=== PATIENT | male | born 1995 | race Caucasian/White ===

== ENCOUNTER → 2023-03-21 | Outpatient (CLI) | payer BC, SELFPAY ==
[2023-03-21 12:18] LABS: Absolute Lymphocyte Count 2.47 X10^3/uL (0.83-4.51); Basophil# 0.07 X10^3/uL; Basophil% 0.8 % (0-1); Eosinophil# 0.32 X10^3/uL; Eosinophils% 3.8 % (0-5); Hematocrit 45.3 % (40-54); Hemoglobin 14.8 g/dL (13.0-16.5); Lymphocyte # 2.47 X10^3/ul (0.83-4.51); Mean Corp Hgb Conc 32.7 g/dL (32-36); Mean Corpuscular Hgb 28.7 pg (27.0-32.0); Mean Platelet Vol. 10.1 fl (6.2-12.0); Monocyte# 0.55 X10^3/uL; Monocyte% 6.5 % (0-10); NRBC Flagged by Analyzer 0 % (0-5); Neutrophil # 5.03 X10^3/uL (2.7-7.7); Neutrophil % 59.1 % (47-70); Platelet Count 267 K/mm3 (150-450); RBC Distribution Width CV 12.7 % (11.6-14.6); RBC Distribution Width SD 41.1 fl (35.1-43.9); Red Blood Count 5.15 M/mm3 (4.6-6.2); White Blood Count 8.5 K/mm3 (4.4-11.0)
[2023-03-21 13:00] LABS: ALB/GLOB Ratio 1.1 RATIO (0.9-2.4); AST(SGOT) 27 U/L (15-37); Alanine Aminotransfer ALT/SGPT 65 U/L (16-61); Albumin, Serum 3.8 g/dL (3.2-5.0); Alkaline Phosphatase 78 U/L (45-117); Anion Gap 4 (5-15); BUN 14 mg/dL (7-18); BUN/Creat Ratio 16.1 RATIO (10-20); Calcium,Total 8.9 mg/dL (8.5-10.1); Chloride 107 mmol/L (98-107); Cholesterol 186 mg/dL (200); Creatinine, Serum 0.87 mg/dL (0.70-1.30); EST Glomerular Filtration Rate 113 mL/min (>60); Est Glom Filt Rate - Afr Amer 136 mL/min (>60); Globulin 3.6 g/dL (2.2-4.2); Glucose 89 mg/dL (74-106); High Density Lipoprotein 50 mg/dL; Potassium 4.3 mmol/L (3.5-5.1); Protein, Total 7.4 g/dL (6.4-8.2); Sodium Level 139 mmol/L (136-145); Thyroid Stim Hormone (TSH) 1.25 uIU/mL (0.358-3.74); Triglycerides 49 mg/dL; Very Low Density Lipoprotein 10 mg/dL (5-40)
== END | disposition home or self-care (01) ==
LOC: LAB 12:02
PROVIDERS: PCP Family Medicine; Referring Provider Family Medicine; Visit Provider Family Medicine
DX: Z00.00 Encounter for general adult medical examination without abnormal findings (principal); R00.0 Tachycardia, unspecified
CPT/HCPCS: 36415; 80053; 80061; 84443; 85025

== ENCOUNTER 2024-09-06 17:50 | Observation (INO) | payer OTHER, SELFPAY ==
[2024-09-06] VITALS (9 sets, daily range): BP systolic 125–149; BP diastolic 65–83; PULSE 103–122; RESP 16–26; TEMP 37.2–37.9; O2SAT 88–99; BMI 30.7
--- NOTE | 2024-09-06 18:33 | PCM.HP.STD ---
HPI - General General Date of Admission: 09/06/24 Date of Service: 09/06/24 Chief Complaint: Dislocated and painful HPI Narrative ADIN CONNELLY, is a 29 M who sustained a left foot injury today while at work. His foot was hit by a tow motor. He went to the ER and was found to have a significant left 5th toe dislocation injury as well as a fracture of the 4th toe on his left foot. I saw patient at my office today and there was noted to be significant pain and bruising as well. Attempts at closed reduction were done today by both the ER provider as well as myself which were unsuccessful so he was admitted to hospital for pain management and surgical intervention. [facility] Medical History Mass of buccal mucosa OCD (obsessive compulsive disorder) Anxiety Home Medications ?Medication ?Instructions ?Recorded ?Last Taken ?Type montelukast 10 mg tablet 10 mg PO DAILY 09/06/24 09/04/24 History paroxetine HCl 30 mg tablet 30 mg PO DAILY 09/06/24 09/05/24 History Allergy/AdvReac Type Severity Reaction Status Date / Time pollen extracts Allergy Intermediate Itching Verified 09/06/24 17:46 Family History Father Cardiac arrest Hypertension Grandmother Diabetes Social History adopted: No household members: family housing: house number of children: 0 service: No current occupational status: employed 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 pets and animals: No history of recent travel: No current gender identity: male Smoking Status: Never smoker alcohol intake: never substance use type: does not use caffeine: Yes hakeem/voodoo: Voodoo seatbelt use: always Vital Signs Vital Signs Vital Signs: 09/06/24 17:46 Temperature 99.0 F Temperature Source Oral Pulse Rate 113 H Respiratory Rate 16 Blood Pressure 149/70 H Blood Pressure Mean 96 Blood Pressure Source Monitor Blood Pressure Position Semi-Fowlers Blood Pressure Location Left Arm Pulse Ox 99 Oxygen Delivery Method Room Air Weight Weight: 97.296 kg Body Mass Index (BMI) 30.7 Physical Exam Const alert and oriented x3 Constitutional Narrative: Significant ecchymosis to left foot, there is deviation of4th and 5th toes on left foot, there is pain to 4th and 5th toes left foot, there is some delayed CFT to left 4th and 5th toes with some duskiness/blue discoloration, no open lesions, no drainage, no cellulitis, no necrosis, no fluctuance, no crepitus, there is significant edema to left foot as well. Muscle strength is intact with ankle dosiflexion and plantarflexion as well as foot inversion and eversion left. Left foot xrays from [facility] were reviewed and significant DIPJ 5th toe dislocation and also fracture middle phalanx of 4th toe with displacement. Results Lab / Micro Data 09/06/24 18:18 09/06/24 18:18 Assessment & Plan Assessment/Plan (1) Dislocation of interphalangeal joint of left lesser toe(s), initial encounter: (2) Displaced fracture of phalanx of lesser toe of left foot: QUALIFIERS: Encounter type: initial encounter Fracture type: closed Phalanx: middle Qualified Code(s): S92.522A - Displaced fracture of middle phalanx of left lesser toe(s), initial encounter for closed fracture (3) Pain in left toe(s): (4) Contusion of left foot: QUALIFIERS: Encounter type: initial encounter Qualified Code(s): S90.32XA - Contusion of left foot, initial encounter PLAN: Plan Evaluation performed. Due to pain and significant dislocation of left 5th toe and displaced fracture of left 4th toe with deformity, with some duskyness to these toes hospital admission for pain management and further treatment is indicated. Patient has been admitted, and plan is to go to OR for ORIF of left 4th and 5th toes. This was discussed with him in detail, reviewed possible benefits vs risks, goals, expectations and estimated healing time. He elected to proceed with surgical intervention of ORIF left 4th and 5th toes. We will plan to go as soon as possible. Hospital Medicine has been consulted for patient's other medical problems and for overall surgical clearance evaluation as well - appreciate assistance No weightbearing left foot. Pain management: Tylenol, Oxyir, and Dilaudid
[2024-09-06 18:42] LABS: Absolute Lymphocyte Count 1.79 X10^3/uL (0.83-4.51); Absolute Neutrophil Count 10.4 X10^3/uL (2.0-7.7); Basophil# 0.05 X10^3/uL; Basophil% 0.4 % (0-1); Eosinophil# 0.07 X10^3/uL; Eosinophils% 0.5 % (0-5); Hematocrit 41.8 % (40-54); Hemoglobin 13.8 g/dL (13.0-16.5); Lymphocyte # 1.79 X10^3/ul (0.83-4.51); Lymphocyte % 13.4 % (19-41); Mean Corpuscular Hgb 28.4 pg (27.0-32.0); Mean Platelet Vol. 10.3 fl (6.2-12.0); Monocyte# 0.94 X10^3/uL; Monocyte% 7.1 % (0-10); NRBC Flagged by Analyzer 0 % (0-5); Neutrophil # 10.41 X10^3/uL (2.7-7.7); Neutrophil % 78.1 % (47-70); Platelet Count 283 K/mm3 (150-450); RBC Distribution Width CV 13.5 % (11.6-14.6); RBC Distribution Width SD 42.9 fl (35.1-43.9); Red Blood Count 4.86 M/mm3 (4.6-6.2); White Blood Count 13.3 K/mm3 (4.4-11.0)
--- NOTE | 2024-09-06 18:57 | PCM.CONS.GEN ---
Assessment & Plan Assessment/Plan (1) Displaced fracture of phalanx of lesser toe of left foot: QUALIFIERS: Encounter type: initial encounter Fracture type: closed Phalanx: middle Qualified Code(s): S92.522A - Displaced fracture of middle phalanx of left lesser toe(s), initial encounter for closed fracture PLAN: Plan Left foot injury with fracture to the fourth toe and dislocation of the left fifth toe. Patient is medically optimized to proceed with surgery with no further optimization necessary at this time. Dr. Canas said he was planting the surgery today. I did notify Dr. Joyce that the patient is medically cleared. Allergies: Continue Singulair. Patient may have some underlying asthma and he may benefit from seeing a school superintendent as outpatient to see if indeed he does have some sort of reactive airway disease. OCD: Continue with SSRI. Thank for the consult. The hospitalist service will be available for any medical issues that may arise during this patient's hospitalization. HPI Consult Data Date of Consult: 09/06/24 HPI Narrative Reason for Consultation: Brenna for Medical clearance. HPI Narrative: DAIN CONNELLY, is a 29 M who presents after his foot was crushed by a tow motor. He sustained a fracture to his left 4th toe and dislocation of his left fifth toe. Patient saw Dr. Ceja in the office and given the severity of the injury, he admitted the patient to his service with plans taken the patient to surgery today. Patient currently feels fine though he does have swelling in his left foot. [facility] Medical History Mass of buccal mucosa OCD (obsessive compulsive disorder) Anxiety Home Medications ?Medication ?Instructions ?Recorded ?Last Taken ?Type montelukast 10 mg tablet 10 mg PO DAILY 09/06/24 09/04/24 History paroxetine HCl 30 mg tablet 30 mg PO DAILY 09/06/24 09/05/24 History Allergy/AdvReac Type Severity Reaction Status Date / Time pollen extracts Allergy Intermediate Itching Verified 09/06/24 17:46 Family History Father Cardiac arrest Hypertension Grandmother Diabetes Social History adopted: No household members: family housing: house number of children: 0 service: No current occupational status: employed 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 States that he does get short of breath when he does not take his Singulair. Does not know if he has underlying asthma. All review of systems were negative except as mentioned above in the history of present illness and the other review of systems. Physical Exam Const alert and no apparent distress HEENT normocephalic, head/scalp atraumatic, hearing grossly normal bilaterally and moist oral mucous membranes Resp normal respiratory effort, no retractions, no use of accessory muscles and clear to auscultation bilaterally Cardio regular rate, regular rhythm, S1 normal heart sound and S2 normal heart sound GI normal to inspection, nondistended, normoactive bowel sounds, soft to palpation, non-tender and non-distended Extremity Extremity Narrative: Swelling of left foot with ecchymosis noted in the left lateral aspect of his foot. Lab / Micro Data 09/06/24 18:18 09/06/24 18:18 Labs: Laboratory Results - last 24 hr 09/06/24 18:18: WBC 13.3 H, RBC 4.86, Hgb 13.8, Hct 41.8, MCV 86.0, MCH 28.4, MCHC 33.0, RDW Std Deviation 42.9, RDW Coeff of [place] 13.5, Plt Count 283, MPV 10.3, Immature Gran % (Auto) 0.500, Neut % (Auto) 78.1 H, Lymph % (Auto) 13.4 L, Webster % (Auto) 7.1, Eos % (Auto) 0.5, Baso % (Auto) 0.4, Absolute Neuts (auto) 10.4 H, Absolute Lymphs (auto) 1.79, Nucleated RBC % 0 Charges/Coding Visit Charges Office Visits / Consults: [id number] OV L3 New 30min
[2024-09-06 19:04] LABS: ALB/GLOB Ratio 1.5 RATIO (0.9-2.4); AST(SGOT) 23 U/L (<=37); Alanine Aminotransfer ALT/SGPT 28 U/L (<=46); Albumin, Serum 4.3 g/dL (3.5-5.0); Alkaline Phosphatase 99 U/L (40-129); Anion Gap 12 (5-15); BUN 10 mg/dL (4-19); BUN/Creat Ratio 12.2 RATIO (10-20); Calcium 9.7 mg/dL (7.6-11.0); Carbon Dioxide 23.9 mmol/L (22.0-29.0); Chloride 102 mmol/L (96-108); Creatinine, Serum 0.8 mg/dL (0.8-1.3); EST Glomerular Filtration Rate 125 (>60); Estimated Creatinine Clearance 162.28 ml/min; Globulin 2.9 g/dL (2.2-4.2); Glucose 93 mg/dL (70-99); Potassium 4.1 mmol/L (3.3-5.1); Protein, Total 7.2 g/dL (5.9-8.4); Sodium Level 138 mmol/L (133-145); Total Bilirubin 0.77 mg/dL (0.00-1.30)
--- NOTE | 2024-09-06 19:30 | RAD_ITS ---
PROCEDURE: FOOT 2 VIEWS REASON FOR EXAM: Fluoroscopic services provided for ORIF of the 4th and 5th toes. TECHNIQUE: 2 view(s) of each foot COMPARISON: None. FINDINGS: LEFT FOOT: Fluoroscopic services provided for ORIF of the 4th and 5th toes. RAD/Foot 2 Views IMPRESSION: Fluoroscopic services provided for ORIF of the 4th and 5th toes. Reading Location: [facility]
--- NOTE | 2024-09-06 20:05 | EKG12_ITS ---
Test Reason : PRE-OP Blood Pressure : */* mmHG Vent. Rate : 106 BPM Atrial Rate : 106 BPM P-R Int : 132 ms QRS Dur : 80 ms QT Int : 306 ms P-R-T Axes : 34 58 12 degrees QTcB Int : 406 ms Sinus tachycardia Otherwise normal ECG No previous ECGs available Confirmed by Peng Li ([id number]), magazine editor SHAWN CURRY ([id number]) on 09/07/2024 8:27:28 AM Referred By: Adelfo Ceja Confirmed By: Peng Li
[2024-09-06] MEDS: Cefazolin 2 GM in Syringe IV (20:20)
--- NOTE | 2024-09-06 21:03 | NURSING ---
pt going for sx, report called to [facility] in OR. pt and family notified they are ready for him.
[2024-09-06] MEDS: Bupivacaine Mpf 0.5% 30 ML VIAL (22:51)
--- NOTE | 2024-09-06 23:10 | PRE.ANES_ITS ---
ASA Classification* ASA Classification ASA Classification: 2 and E Assessment & Plan Anesthesia* Anesthesia Assessment Anesthesia Assessment: Discussed sedation and/or anesthesia options, risks, benefits, and alternatives with patient/parents/legal guardian/POA. Questions invited. The patient/parents/legal guardian/POA seems to understand and agrees to proceed with anesthesia plan. Reviewed the physical assessment, medical history, allergy history and patient home medications list prior to surgery/procedure/anesthetic and documented any changes. Performed airway and anesthesia risk assessments. Anesthesia Type Anesthesia Type: General History Source History Obtained from:: Patient and Chart Anesthesia Focused Assessment* Temperature: 99 F Pulse Rate: 118 Blood Pressure: 134/70 Respiratory Rate: 16 Pulse Ox: 98 Airway Assessment Mouth opens: >3 cm Mallampati Score: IV Teeth Condition: Caps/Crowns (#8 and #9 teeth have caps) Neck Range of motion (ROM): Full ROM Focused Labs Anesthesia Preop lab: CBC WBC 13.3 K/mm3 (4.4-11.0) H 09/06/24 18:18 5 RBC 4.86 M/mm3 (4.6-6.2) 09/06/24 18:18 09/06/24 Hgb 13.8 g/dL (13.0-16.5) 09/06/24 18:18 09/06/24 Hct 41.8 % (40-54) 09/06/24 18:18 09/06/24 Plt Count 283 K/mm3 (150-450) 09/06/24 18:18 09/06/24 CHEMISTRY Potassium 4.1 mmol/L (3.3-5.1) 09/06/24 18:18 09/06/24 Sodium 138 mmol/L (133-145) 09/06/24 18:18 09/06/24 BUN 10 mg/dL (4-19) 09/06/24 18:18 09/06/24 Creatinine 0.8 mg/dL (0.8-1.3) 09/06/24 18:18 09/06/24 Glucose 93 mg/dL (70-99) 09/06/24 18:18 09/06/24 TSH 1.25 uIU/mL (0.358-3.74) 03/21/23 12:09 COAG Pre-Assessment Diagnosis/Proposed Procedure Planned Operative Procedure(s): ORIF left 4th and 5th toes Anesthesia History Anesthesia History - life care planner: Anesthesia History - life care planner Hx Hospitalization Any Problems With Anesthesia No 09/06/24 17:40 Cholinesterase deficiency No 09/06/24 17:40 You/Your Family Experience No 09/06/24 17:40 fever (hyperthermia) with Relationship Recent Exposure to Contagious No 09/06/24 17:40 Disease Does patient have nerve No 09/06/24 17:40 stimulator Patient instructed to have No 09/06/24 17:40 device shut off --Does patient have Pacemaker No 09/06/24 19:50 or ICD? When Was Last Pacemaker Check QUESTION #4 FULL TEXT: You/Your Family Experience fever (hyperthermia) with Anesthesia Last Oral Intake Last Oral intake: Last Oral Intake NPO since 0000 09/06/24 19:50 Meds taken in AM with sips of No 09/06/24 19:50 water? Meds patient instructed to take am of surgery Any additional information?: Yes NPO since: 00:00 PONV PONV - life care planner: PONV - life care planner Female HX of Motion Sickness HX of N/V After Surgery Non-Smoker Duration of Surgery greater than 60 minutes Number of Risk Factors PONV Score Height & Weight Height & Weight: Anesthesia: Height & Weight Height 5 ft 10 in 09/06/24 19:50 Weight: 97.296 kg 09/06/24 19:50 Body Mass Index (BMI) 30.7 09/06/24 19:50 Respiratory Assessment Respiratory Assessment - life care planner: Respiratory Tract Infection Hx - life care planner Hx Respiratory Tract Infection No 09/06/24 17:40 STOP Sleep Apnea STOP Sleep Apnea - life care planner: STOP Sleep Apnea - life care planner Hx Hypertension No 09/06/24 17:00 Hx Sleep Apnea No 09/06/24 17:00 CPAP BIPAP Do you snore loudly (louder No 09/06/24 17:00 than talking or can be heard Do you often feel tired/ No 09/06/24 17:00 fatigued/ sleepy during daytime? Has anyone observed you stop No 09/06/24 17:00 breathing during sleep? STOP Results Negative 09/06/24 17:00 QUESTION #5 FULL TEXT : Do you snore loudly (louder than talking or can be heard through closed doors)? Tobacco Use History Tobacco Use History - life care planner: Tobacco Use History - life care planner Tobacco Use Smoking Status Never smoker 09/06/24 17:32 Hx Tobacco Use No 09/06/24 17:00 Years Smoking Packs Smoked per Day Smoking Cessation Date was within the last 15 years Hx Smoking Cessation Date Hx Smoking Cessation Counseling Hematologic Medial History Hematologic Hx - life care planner: Hematologic Medical Hx - director of cardiology Hx of Blood Transfusion No 09/06/24 17:00 Hx of Transfusion in last 3 No 09/06/24 17:00 Months Date of Last Transfusion (if within last 3 months) Ever experience any problems No 09/06/24 17:00 with transfusion(s)? Specify any problems Hx of Preganancy in last 3 N/A 09/06/24 17:00 Months Nurse Filling Out Transfusion KBORNSTIN 09/06/24 17:00 & Questions: Date: 09/06/24 09/06/24 17:00 Time: 17:39 09/06/24 17:00 Patient unable to answer at this time (ie. confused, unrespo /Reproduction History /Reproductive History - life care planner: /Reproductive Hx- life care planner Hx Now No 09/06/24 17:40 Gestational Age (in weeks): EDC: Hx Hx Para Hx Section SAB No 09/06/24 17:40 Active Medications Active Medications: Current Medications Generic Name Dose Route Start Last Admin Trade Name Freq PRN Reason Stop Dose Admin Acetaminophen 650 mg 09/06/24 18:03 Acetaminophen 325 Mg Tablet PO Q6H PRN PRN Pain 1-10 or Fever Hydromorphone HCl 0.5 mg 09/06/24 18:03 Hydromorphone 0.5 Mg/0.5 Ml Syringe IV Q4H PRN PRN Pain Score 6-10 Oxycodone HCl 10 mg 09/06/24 18:03 Oxycodone 5 Mg Tablet PO Q6H PRN PRN Pain Score 4-10 PFSH Medical History Mass of buccal mucosa OCD (obsessive compulsive disorder) Anxiety Home Medications ?Medication ?Instructions ?Recorded ?Last Taken ?Type montelukast 10 mg tablet 10 mg PO DAILY 09/06/24/10/04 History paroxetine HCl 30 mg tablet 30 mg PO DAILY 09/06/24 History Allergy/AdvReac Type Severity Reaction Status Date / Time pollen extracts Allergy Intermediate Itching Verified 09/06/24 17:46 Family History Father Cardiac arrest Hypertension Grandmother Diabetes Social History adopted: No household members: family housing: house number of children: 0 service: No current occupational status: employed 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
[2024-09-06] MEDS: 0.9% Normal Saline (1000mL) 1,000 ML 15 ML IV (23:15)
--- NOTE | 2024-09-06 23:35 | PCM.POST.ANE ---
Anesthesia: Postop Eval I Current Vital Signs Temperature: 100.3 F Pulse Rate: 120 Blood Pressure: 142/71 Respiratory Rate: 16 Pulse Ox: 92 Oxygen Delivery Method: Nasal Cannula Oxygen Flow Rate (L/min): 3 Assessment Airway patent: Yes Spontaneous unlabored respirations: Yes Mental status: Asleep nausea: No Vomiting: No Anesthesia Complication: No Fluid Hydration Crystalloid volume administer (ml): 600 Total IV fluid infused: 600 Progress Note Anesthesia document: Postop Eval 1 completed: Yes
--- NOTE | 2024-09-06 23:52 | RAD_ITS ---
PROCEDURE: FOOT MIN 3 VIEWS REASON FOR EXAM: Postop TECHNIQUE: Three views left foot COMPARISON: None. FINDINGS: LEFT FOOT: Anel wire overlaps the distal, middle and proximal phalanges at the 4th and 5th rays on the AP and oblique views and difficult to isolate the individual rays on the lateral view with overlap. Appearance of fracture of the 4th distal phalanx on the AP and oblique views. Apparent asymmetric widening of the 4th and 5th distal interphalangeal joints. Diffuse soft tissue swelling with air in the dorsal soft tissues of the forefoot. RAD/Foot min 3 Views IMPRESSION: Postoperative appearance as above with 2 Anel wires. Reading Location: [id number]
[2024-09-07] VITALS (7 sets, daily range): BP systolic 121–139; BP diastolic 64–85; PULSE 89–119; RESP 16–20; TEMP 36.6–37.8; O2SAT 94–99
--- NOTE | 2024-09-07 00:04 | OP.PCM_ITS ---
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: No Type of Anesthesia: General and Local RN Documented Start/Stop Times: Operation Date: 09/06/24 19:30 Case Time Anesthesia Start 09/06/24 22:16 Into Room 09/06/24 22:16 Procedure Start 09/06/24 22:39 Procedure End 09/06/24 23:22 Anesthesia End 09/06/24 23:31 Out of Room 09/06/24 23:31 Into Recovery 09/06/24 23:33 Out of Recovery 09/07/24 00:26 Procedure Start Time: 22:39 Procedure Stop Time: 23:31 Select all DRAINS/GRAFTS/IMPLANTS that apply: None Estimated Blood Loss: 25mL Specimen collected: No Description of surgery: Indications: 29 year old gentleman sustained a tow motor injury to his left foot today while at work. Left 5th toe is severely dislocated and left 4th toe with displaced fracture. There is also significant contusion to his left foot. He presented to ER where closed reduction on left 5th toe was attempted but unsuccessful, he then presented to my office where again closed reduction was ultimately unsuccessful to left 5th toe. Given the findings of with concern of circulation compromise along with pain he was admitted to the hospital for further management. Discussed nonsurgical vs surgical options with him, and he elected to proceed with the surgical procedures as noted above. The rationale was reviewed with him, along with the possible benefits vs risks, goals, expectations and estimated healing time. He was advised the risks include but are not limited to pain, bleeding, infection, need for further surgery, deformity, numbness/nerve injury, blood clots, loss of function, limb and life. The alternative options were discussed with him - which includes but not limited to no treatment, living with condition, special shoes, activity modifications. He elected to proceed with the surgical procedures to reduce and fixate the toes. The consent form was reviewed with him, and he freely signed it. No guarantees were given nor implied. No warranties were given. Operative Procedure: The patient was brought back to the operating room and was placed on the operating room table in the supine position. Patient was carefully secured to the operating room table with a safety belt around his waist. A timeout was performed and the patient was proper identified and surgical plan was confirmed. The patient received 2 grams of IV Cephazolin for antibiotic prophylaxis. A well padded pneumatic tourniquet was applied around his left ankle. The patient received general anesthesia per the anesthesiologist. The skin of the left 4th and 5th toes was cleansed with 70% Isopropyl alcohol and a total of 10mL of 0.5% Bupivacaine plain was given as a local nerve block around the toes. The patient's left foot was scrubbed, prepped and draped in the usual aseptic fashion. Further attention was directed to his left foot where there was noted to be severe bruising and edema, with deformity of the left 4th and 5th toes consistent with his injury. The patient's left foot was exsanguinated using an E smarch bandage and the left pneumatic tourniquet was inflated to 250mmHg. Left 5th toe open reduction internal fixation: A skin incision was made overlying the dorsal toe using a 15 blade. Careful dissection was completed down to the middle and proximal phalanges of the toe, there were noted to be severe dislocated and deviated medially. These bones were identified and properly reduced into normal alignment, back in alignment with the distal phalanx. Of note when the incision was made there was a lot of blood that poured out of his foot consistent with a hematoma, and the hematoma was drained through this incision. With the bone of the 5th toe in proper alignment they were pinned using a 0.062in kwire with the kwire exiting through the distal aspect of the toe. Proper reduction and placement of the kwire was confirmed with intraoperative fluoroscopy. There was excellent alignment and stability of the toe at this time. The site was flushed out with copious amounts of normal saline solution. The skin was reapproximated using 3-0 Nylon. The kwire was trimmed and capped. Left 4th toe reduction and fixation: The fracutre of the distal phalanx was manipulated manually and was able to close reduce it, but it was unstable so after manually reducing it a kwire was placed percutaneous across the fracture down the center of the distal phalanx and also through the middle and proximal phalanges to stabilize the fracture and keep the toe in rectus position. The toe was now in rectus and stable position. Proper reduction and placement of the kwire was confirmed with intraoperative fluoroscopy. The kwire was trimmed and capped. Because closed reduction and percutaneous pinning was successful opening up the fracture site was not needed nor completed. The left ankle pneumatic tourniquet was deflated (total tourniquet time was 44 minutes) and there was immediate return of warmth and perfusion to patient's left foot and to all five toes on his left foot. CFT < 2 seconds to all toes at this time, and color was significantly improved to left 4th and 5th toes compared to pre operatively. The perfusion now appeared normal to these toes. A dressing was applied to the left foot with consisted of Betadine Adaptic, 4x4 gauze, kerlix and frankie dressing. The patient tolerated the above procedures well and anesthesia well with no complications. The patient was transported from the operating room to the recovery room with vital signs stable and in good condition. Post operative orders were placed. Keep left foot elevated, no weightbearing left foot. Keep dressing clean, dry and intact.The patient will be followed as an inpatient. Surgical Findings: As noted above Complications Complications: No
--- NOTE | 2024-09-07 00:04 | PCM.POSTANE2 ---
Anesthesia Postop Eval I Sum Postop Eval Completion status Anesthesia document: Postop Eval 1 completed: Yes Anesthesia Postop Eval I Summary Anesthesia Postop Eval I Summary: Anesthesia Postop Eval I: Assessment Summary Airway patent Yes 09/06/24 23:39 Spontaneous unlabored Yes 09/06/24 23:39 respirations Mental status Asleep 09/06/24 23:39 nausea No 09/06/24 23:39 Vomiting No 09/06/24 23:39 Anesthesia Postop Eval I: Fluid Summary Crystalloid volume administer 600 09/06/24 23:39 (ml) Colloids volume administered ( ml) Blood Product volume administered (ml) Total IV fluid infused 600 09/06/24 23:39 Anesthesia Postop Eval I: Summary Notes Anesthesia Complication No 09/06/24 23:39 Anesthesia Complication Comment: Post-operative progress note Anesthesia: Postop Eval II Evaluation Mental status: Awake and Calm Pain Level: 2 nausea: No Vomiting: No Complications Anesthesia Complication: No
[2024-09-07] MEDS: Acetaminophen 325 MG Tablet 650 MG PO ×2 (05:14→13:20)
[2024-09-07] MEDS: oxyCODONE 5 MG Tablet 10 MG PO ×2 (07:52→17:56)
--- NOTE | 2024-09-07 10:10 | PN.HOSP_ITS ---
Subjective Subjective No issues overnight, doing well. Pain is controlled Objective Data Objective Data Vital Signs: Vital Signs Temp Pulse Resp BP Pulse Ox O2 Del Method O2 Flow Rate 97.9 F 97 16 125/81 H 98 Room Air 2 09/07/24 08:05 09/07/24 08:05 09/07/24 08:05 09/07/24 08:05 09/07/24 08:05 09/07/24 08:05 09/07/24 00:30 Oxygen Flow Rate (L/min) 2 Oxygen Delivery Method Room Air Weight: 214 lb 8 oz Body Mass Index (BMI) 30.7 Intake & Output: Intake and Output for Last 24 Hours 09/06/24 09/07/24 09/08/24 03:59 03:59 03:59 Intake Total 1020 / 1020 Balance 1020 / 1020 Lab / Micro Data 09/06/24 18:18 09/06/24 18:18 Labs: Laboratory Results - last 24 hr 09/06/24 18:18: WBC 13.3 H, RBC 4.86, Hgb 13.8, Hct 41.8, MCV 86.0, MCH 28.4, MCHC 33.0, RDW Std Deviation 42.9, RDW Coeff of [place] 13.5, Plt Count 283, MPV 10.3, Immature Gran % (Auto) 0.500, Neut % (Auto) 78.1 H, Lymph % (Auto) 13.4 L, Towner % (Auto) 7.1, Eos % (Auto) 0.5, Baso % (Auto) 0.4, Absolute Neuts (auto) 10.4 H, Absolute Lymphs (auto) 1.79, Nucleated RBC % 0, Sodium 138, Potassium 4.1, Anion Gap 12, BUN 10, Creatinine 0.8, Estim Creat Clear Calc 162.28, Est GFR (MDRD) Non-Af 125, BUN/Creatinine Ratio 12.2, Glucose 93, Calcium 9.7, Total Bilirubin 0.77, AST 23, ALT 28, Alkaline Phosphatase 99, Total Protein 7.2, Albumin 4.3, Globulin 2.9, Albumin/Globulin Ratio 1.5 Radiography Diagnostic Testing: Radiology Impression Foot X-Ray 09/06/24 19:30 IMPRESSION: Fluoroscopic services provided for ORIF of the 4th and 5th toes. Reading Location: [facility] Foot X-Ray 09/06/24 23:52 IMPRESSION: Postoperative appearance as above with 2 Anel wires. Reading Location: [facility] Physical Exam Narrative General: Alert, Oriented x3, Cooperative, No apparent distress HEENT: Atraumatic, PERRLA, EOMI, Normocephalic Oral: Moist Mucosa Neck: Supple, No JVD Lungs: Clear to auscultation, Normal air movement, No rhonchi, No wheeze, No rales Cardiovascular: Regular rate, Regular Rhythm, Normal S1, Normal S2, No murmurs Abdomen: Soft, Non Tender, Non-Distended, No Hepato-splenomegaly Extremities: No edema, Capillary Refill Less than 3 Seconds Skin: No rashes, No breakdown Musculoskeletal: Foot is wrapped and dressing is intact Neurological: No focal neurological deficits, Motor Exam 5/5 strength throughout, Sensory exam intact to light touch and pain Psych/Mental Status: Normal Affect, Appropriate Assessment & Plan Assessment/Plan (1) Displaced fracture of phalanx of lesser toe of left foot: QUALIFIERS: Encounter type: initial encounter Fracture type: c losed Phalanx: middle Qualified Code(s): S92.522A - Displaced fracture of middle phalanx of left lesser toe(s), initial encounter for closed fracture PLAN: Plan 1. Left foot injury status post repair on 09/06/2024 ? Pain management per primary ? Medically stable for discharge will sign off, call with questions 2. Allergies ? Continue Singulair 3. OCD ? Continue with home meds DVT: Ambulation Charges/Coding Visit Charges Office Visits / Consults: 18369 OV L2 Est 10min
[2024-09-07] MEDS: HYDROmorphone 0.5 MG/0.5 ML SYRINGE IV (10:40)
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
[2024-09-07] MEDS: Ibuprofen 600 MG Tablet PO (14:45)
--- NOTE | 2024-09-07 18:51 | PN_ITS ---
Subjective Subjective Patient was seen today for follow up on his left foot. He relates pain is worse today, has taken needed tylenol, ibuprofen, oxycodone and also dilaudid. He is resting in bed with no other complaints. No complaints of f/c/n/v. Objective Data Objective Data Vital Signs: Vital Signs Temp Pulse Resp BP Pulse Ox O2 Del Method O2 Flow Rate 97.9 F 105 H 18 131/74 H 97 Room Air 2 09/07/24 17:51 09/07/24 17:51 09/07/24 17:51 09/07/24 17:51 09/07/24 17:51 09/07/24 17:51 09/07/24 00:30 Oxygen Flow Rate (L/min) 2 Oxygen Delivery Method Room Air Weight: 97.296 kg Body Mass Index (BMI) 30.7 Intake & Output: Intake and Output for Last 24 Hours 09/05/24 09/06/24 09/07/24 23:59 23:59 23:59 Intake Total 2137 Balance 2137 Lab / Micro Data 09/06/24 18:18 09/06/24 18:18 Labs: Laboratory Results - last 24 hr 09/06/24 18:18: Sodium 138, Potassium 4.1, Anion Gap 12, BUN 10, Creatinine 0.8, Estim Creat Clear Calc 162.28, Est GFR (MDRD) Non-Af 125, BUN/Creatinine Ratio 12.2, Glucose 93, Calcium 9.7, Total Bilirubin 0.77, AST 23, ALT 28, Alkaline Phosphatase 99, Total Protein 7.2, Albumin 4.3, Globulin 2.9, Albumin/Globulin Ratio 1.5 Radiography Diagnostic Testing: Radiology Impression Foot X-Ray 09/06/24 19:30 IMPRESSION: Fluoroscopic services provided for ORIF of the 4th and 5th toes. Reading Location: [facility] Foot X-Ray 09/06/24 23:52 IMPRESSION: Postoperative appearance as above with 2 Anel wires. Reading Location: [facility] Physical Exam Const alert, oriented x3 and no apparent distress Constitutional Narrative: Dressing left foot is clean, dry and intact, able to see tips of all toes - CFt < 3 seconds to all toes on his left foot, kwires are intact, no suspicion for DVT, infection or compartment syndrome at this time. Assessment & Plan Assessment/Plan (1) Contusion of left foot: QUALIFIERS: Encounter type: initial encounter Qualified Code(s): S90.32XA - Contusion of left foot, initial encounter (2) Pain in left toe(s): (3) Displaced fracture of phalanx of lesser toe of left foot: QUALIFIERS: Encounter type: initial encounter Fracture type: c losed Phalanx: middle Qualified Code(s): S92.522A - Displaced fracture of middle phalanx of left lesser toe(s), initial encounter for closed fracture (4) Dislocation of interphalangeal joint of left lesser toe(s), initial encounter: PLAN: Plan Evaluation performed. s/p reduction and fixation of left 4th and 5th toes on 09/06/2024. Discussed possible discharge home with patient however his pain is to great and inpatient pain management is indicated along with monitoring at this time, he also has great difficulty with crutches - he is not able to go home at this time. PT/OT to see patient tomorrow as well - this is medically necessary before patient can go home. Pain management: Tylenol, Ibuprofen, Oxycodone, Dilaudid No weightbearing left foot, keep left foot elevated. Reviewed left foot xrays from yesterday - details of procedure and results discussed with patient.
[2024-09-08 02:15] VITALS: BP 111/59; PULSE 81; RESP 16; TEMP 37; O2SAT 97
[2024-09-08 08:16] VITALS: BP 132/80; PULSE 94; RESP 18; TEMP 37.1; O2SAT 98
[2024-09-08] MEDS: Ibuprofen 600 MG Tablet PO ×2 (08:26→17:51)
--- NOTE | 2024-09-08 12:14 | CASEMGMT ---
Received tc from Abby at [facility] requesting pt admitting dx and med list to be faxed to her at [phone]. Her call back number is [phone]. Faxed at this time.
[2024-09-08 14:00] VITALS: BP 122/68; PULSE 98; RESP 18; TEMP 36.8; O2SAT 100
--- NOTE | 2024-09-08 15:18 | PCM.DC ---
Discharge Instructions DC O2, CPAP, BIPAP needs Home O2 Discharge instructions: No Dressing / Incision Discharge Activity: May Not Drive and Use Crutches Weight Bearing Status: No weight bearing (No weightbearing left foot) Keep extremity elevated above heart level: Left Leg (Keep left foot and ankle elevated using pillows for at least 50 minutes of every hour) Additional Activity Instructions:: Gently move both hips and knees for a few minutes of every hour to help prevent a blood clot Dressing / Incision Call your doctor if your incision/area has: Sudden Increased Bleeding, Increased Pain/ Swelling and Foul Smelling Discharge Call your doctor if you observe: Fever of 101 or Higher, Shortness of breath, Chest pain, Increased palpitations (irregular heartbeat), Calf discomfort and Uncontrolled pain Change Dressing in: do not change dressing (Keep dressing left foot clean, dry and intact) Follow Up Care Please Follow Up With: Adelfo Ceja DPM When: at [facility] next week, please call office to schedule appointment Office Address: [address] [place] [address], [facility] [place] [address] Office Office Call sooner if needed: Dr. Ceja's cell: [phone] Pain Management Medication: -Ibuprofen 200mg tablet: Take 3 tablets (600mg) by mouth every 6 hours as needed for pain -Tylenol (also known as acetaminophen) 325mg tablet: Take 2 tablets (650mg) by mouth every 6 hours as needed for pain Test Results: Test results from this visit will be discussed in further detail at your follow-up appointment, if applicable. Discharge Plan Admission Admit Date/Time: 09/06/24 17:50 Attending Provider: Adelfo Ceja Primary Care Provider: Kindra Guzman Consulting Providers: Nadeem Matias Discharge Orders/Prescriptions Prescriptions: Continued paroxetine HCl 30 mg tablet 30 mg PO DAILY Patient Comments: takes in afternoon around 145pm montelukast 10 mg tablet 10 mg PO DAILY Patient Comments: Takes at night Referrals / Follow Up: Kindra Guzman MD [Primary Care Provider] -
--- NOTE | 2024-09-08 15:25 | DS.PCM_ITS ---
Providers Date of Admission: 09/06/24 Primary Care Physician: Dr. Kindra Guzman MD Consultations 09/06/24 17:39 Consult: Hospitalist Routine Consulting Provider: Conrado Galvez Reason for Consult: medical evaluation prior to surgery EMERGENT Consult: No MD Notified: Yes Date Notified: 09/06/24 Time Notified: 17:39 Method of Notification: Text Reason For Visit: DISLOCATED & PAINFUL TOES, LEFT FOOT Diagnosis Discharge Diagnosis (1) Contusion of left foot: Status: Acute Code(s): S90.32XA - Contusion of left foot, initial encounter Qualifiers: Encounter type: initial encounter Qualified Code(s): S90.32XA - Contusion of left foot, initial encounter (2) Pain in left toe(s): Status: Acute Code(s): M79.675 - Pain in left toe(s) (3) Displaced fracture of phalanx of lesser toe of left foot: Status: Acute Code(s): S92.502A - Displaced unspecified fracture of left lesser toe(s), initial encounter for closed fracture Qualifiers: Encounter type: initial encounter Fracture type: closed Phalanx: m iddle Qualified Code(s): S92.522A - Displaced fracture of middle phalanx of left lesser toe(s), initial encounter for closed fracture (4) Dislocation of interphalangeal joint of left lesser toe(s), initial encounter: Status: Acute Code(s): S93.115A - Dislocation of interphalangeal joint of left lesser toe(s), initial encounter Plan Evaluation performed. s/p reduction and fixation of left 4th and 5th toes on 09/06/2024. Discussed possible discharge home with patient however his pain is to great and inpatient pain management is indicated along with monitoring at this time, he also has great difficulty with crutches - he is not able to go home at this time. PT/OT to see patient tomorrow as well - this is medically necessary before patient can go home. Pain management: Tylenol, Ibuprofen, Oxycodone, Dilaudid No weightbearing left foot, keep left foot elevated. Reviewed left foot xrays from yesterday - details of procedure and results discussed with patient. Medications at Discharge Home Medications montelukast 10 mg tablet 10 mg PO DAILY 09/06/24 paroxetine HCl 30 mg tablet 30 mg PO DAILY 09/06/24 Hospital Course Operations - (Reduction and fixation of left 4th and 5th toes on 09/06/2024) Physical Exam Const alert, oriented x3 and no apparent distress Constitutional Narrative: Dressing left foot is clean, dry and intact, dressing was removed - there is ecchymosis and edema consistent with injury, no cellulitis, no necrosis, no visible abscess, incision 5th toe is well coapted with intact sutures, CFT < 3 seconds to all toes on his left foot, kwires are intact with no complication, calf is soft and supple bilateral with no calf pain- no suspicion for DVT, no evidence of infection, no compartment syndrome at this time, there is some superficial blistering to foot due to injury No leg edema bilateral. He relates to some numbness to left lateral foot - likely from injury. Weight / BMI Weight Weight: 97.296 kg Body Mass Index (BMI) 30.7 ABG / Lab / Microbiology Data 09/06/24 18:18 09/06/24 18:18 D/C Instructions Weight Bearing Status: No weight bearing (No weightbearing left foot) Keep extremity elevated above heart level: Left Leg (Keep left foot and ankle elevated using pillows for at least 50 minutes of every hour) Additional Activity Instructions: Gently move both hips and knees for a few minutes of every hour to help prevent a blood clot Call your doctor if your incision/area has: Sudden Increased Bleeding, Increased Pain/ Swelling and Foul Smelling Discharge Call your doctor if you observe: Fever of 101 or Higher, Shortness of breath, Chest pain, Increased palpitations (irregular heartbeat), Calf discomfort and Uncontrolled pain DC O2, CPAP, BIPAP Needs Home O2 Discharge instructions: No Please Follow Up With: Adelfo Ceja DPM When: at [facility] next week, please call office to schedule appointment Office Address: [address] [place] [address], [facility], [place] [address] Office Office Call sooner if needed: Dr. Ceja's cell: [phone] Pain Management Medication: -Ibuprofen 200mg tablet: Take 3 tablets (600mg) by mouth every 6 hours as needed for pain -Tylenol (also known as acetaminophen) 325mg tablet: Take 2 tablets (650mg) by mouth every 6 hours as needed for pain Meaningful Use Info Meaningful Use Meaningful Use Diagnoses (Choose all that apply): None applicable Ischemic Stroke Statin Dosing Therapy Reference: STATIN DOSE THERAPY REFERENCE: * Patients > 75 years receive moderate or high dose statin therapy. * Patients 75 years or YOUNGER should receive HIGH intensity statin dose unless contraindicated. You will be required to document reason for non-treatment if statin daily dose does not meet guidelines. HIGH DOSE STATIN THERAPY DAILY Atorvastatin > than or = to 40 mg Rosuvastatin > than or = to 20 mg Amlodipine + Atorvastatin > than or = to 2.5/40 mg Ezetimibe + Simvastatin 10/80 mg Simvastatin 80mg Discharge Plan Admission Admit Date/Time: 09/06/24 17:50 Attending Provider: Adelfo Ceja Primary Care Provider: Kindra Guzman Consulting Providers: Nadeem Matias Discharge Orders/Prescriptions Prescriptions: Continued paroxetine HCl 30 mg tablet 30 mg PO DAILY Patient Comments: takes in afternoon around 145pm montelukast 10 mg tablet 10 mg PO DAILY Patient Comments: Takes at night Referrals / Follow Up: Kindra Guzman MD [Primary Care Provider] - Disposition Disposition (needs filled in before D/C Order can be placed): Home, Self Care
--- NOTE | 2024-09-08 15:27 | PN.SURG_ITS ---
Subjective Subjective Patient was seen today for follow up on his left foot. He relates he is doing well, and pain controlled with Ibuprofen. He feels ready to go home. No f/c/n/v, no calf pain at this time, no complaints of shortness of breath or chest pain. Objective Data Objective Data Vital Signs: Vital Signs Temp Pulse Resp BP Pulse Ox O2 Del Method O2 Flow Rate 98.2 F 98 18 122/68 H 100 Room Air 2 09/08/24 14:00 09/08/24 14:00 09/08/24 14:00 09/08/24 14:00 09/08/24 14:00 09/08/24 14:00 09/07/24 00:30 Oxygen Flow Rate (L/min) 2 Oxygen Delivery Method Room Air Weight: 97.296 kg Body Mass Index (BMI) 30.7 Intake & Output: Intake and Output for Last 24 Hours 09/06/24 09/07/24 09/08/24 23:59 23:59 23:59 Intake Total 2137 1138 / 1138 Balance 2137 1138 / 1138 Lab / Micro Data 09/06/24 18:18 09/06/24 18:18 Physical Exam Const alert, oriented x3 and no apparent distress Constitutional Narrative: Dressing left foot is clean, dry and intact, dressing was removed - there is ecchymosis and edema consistent with injury, no cellulitis, no necrosis, no visible abscess, incision 5th toe is well coapted with intact sutures, CFT < 3 seconds to all toes on his left foot, kwires are intact with no complication, calf is soft and supple bilateral with no calf pain- no suspicion for DVT, no evidence of infection, no compartment syndrome at this time, there is some superficial blistering to foot due to injury No leg edema bilateral. He relates to some numbness to left lateral foot - likely from injury. Assessment & Plan Assessment/Plan (1) Contusion of left foot: QUALIFIERS: Encounter type: initial encounter Qualified Code(s): S90.32XA - Contusion of left foot, initial encounter (2) Pain in left toe(s): (3) Displaced fracture of phalanx of lesser toe of left foot: QUALIFIERS: Encounter type: initial encounter Fracture type: c losed Phalanx: middle Qualified Code(s): S92.522A - Displaced fracture of middle phalanx of left lesser toe(s), initial encounter for closed fracture (4) Dislocation of interphalangeal joint of left lesser toe(s), initial encounter: PLAN: Plan Evaluation performed. s/p reduction and fixation of left 4th and 5th toes on 09/06/2024. He is ready for discharge. Pain management: Tylenol, Ibuprofen No weightbearing left foot, keep left foot elevated. Reviewed mechanical DVT prophylaxis with patient. Patient to follow up with me next week in office.
[2024-09-08] MEDS: PARoxetine 10 MG Tablet 30 MG PO (15:37)
--- NOTE | 2024-09-08 16:19 | PHA.DC.MR.R ---
Pharmacy ID Med Reconciliation Pharmacy Service has performed discharge medication reconciliation for this patient. The patient's discharge medication list was reviewed for discrepancies and discrepancies were resolved. Medications at Discharge Home Medications montelukast 10 mg tablet 10 mg PO DAILY 09/06/24 paroxetine HCl 30 mg tablet 30 mg PO DAILY 09/06/24
== END 2024-09-08 18:51 | disposition home or self-care (01) ==
PROVIDERS: Admitting Provider Podiatrist; PCP Family Medicine; Referring Provider Podiatrist; Visit Provider Podiatrist
PROC: (CPT 28485; principal; 2024-09-06 19:15)
DX: S92.532A Displaced fracture of distal phalanx of left lesser toe(s), initial encounter for closed fracture (principal); W23.0XXA Caught, crushed, jammed, or pinched between moving objects, initial encounter; S90.32XA Contusion of left foot, initial encounter; V83.9XXA Unspecified occupant of special industrial vehicle injured in nontraffic accident, initial encounter; Y93.89 Activity, other specified; Y99.0 Civilian activity done for income or pay; Y92.89 Other specified places as the place of occurrence of the external cause; S93.115A Dislocation of interphalangeal joint of left lesser toe(s), initial encounter; F42.9 Obsessive-compulsive disorder, unspecified; Z79.899 Other long term (current) drug therapy
CPT/HCPCS: 28525 ×2; 01480; 36415; 73620; 73630; 76000; 80053; 85025; 93005; 96374; 97162; 99221; A4216; G0378; J2405